=== PATIENT | female | born 1940 | race Caucasian/White ===

== ENCOUNTER 2019-06-23 10:34 | Emergency (ER) | payer OTHER, MEDICARE ==
[2019-06-23] MEDS ORDERED: LIDOCAINE 1% MPF 30 ML VIAL ONE (13:21)
--- NOTE | 2019-06-23 14:54 | ER ---
Nurse's Notes [facility] Name: Toya Thomason Age: 78 yrs Sex: Female : 1940 Arrival Date: 06/23/2019 Time: 10:36 Bed 8 Private MD: Joselito Ponce V Diagnosis: Abscess of Bartholin's gland;Cellulitis of left toe-dorsum of left foot and great toe Presentation: 06/22 11:08 Chief complaint: Patient states: Left sided vaginal cyst x 3 days, started bleeding jl7 this morning and it's very painful. Also, I have swelling on my left big toe that started around Easter time and it's getting worse. Coronavirus screen: Proceed with normal triage. Patient denies a cough. Patient denies shortness of breath or difficulty breathing. Patient denies measured and/or subjective temperature greater than 100.4F prior to today's visit. Patient denies travel on a cruise ship or to a country the [facility] currently lists as an affected area. Patient denies contact with known and/or suspected case of COVID-19. Ebola Screen: No symptoms or risks identified at this time. Initial Sepsis Screen: Does the patient meet any 2 criteria? No. Patient's initial sepsis screen is negative. Does the patient have a suspected source of infection? No. Patient's initial sepsis screen is negative. Risk Assessment: Do you want to hurt yourself or someone else? Patient reports no desire to harm self or others. Onset of symptoms was June 20, 2019. Care prior to arrival: None. 11:08 Method Of Arrival: Ambulatory jl7 11:08 Acuity: LUIS 3 jl7 Triage Assessment: 11:13 General: Appears in no apparent distress. uncomfortable, Behavior is calm, cooperative, jl7 appropriate for age. Pain: Complains of pain in left aspect of groin and left 1st toe Pain currently is 8 out of 10 on a pain scale. Neuro: Level of Consciousness is awake, alert, obeys commands, Oriented to person, place, time, situation. Cardiovascular: Patient's skin is warm and dry. Respiratory: Airway is patent Respiratory effort is even, unlabored, Respiratory pattern is regular, symmetrical. Derm: Skin is pink, warm \T\ dry. Historical: - Allergies: 11:13 Sulfa (Sulfonamide Antibiotics); jl7 - Home Meds: 11:13 lisinopril 5 mg Oral tab 1 tab once daily [Active]; Lipitor 80 mg Oral tab 1 tab once jl7 daily [Active]; Toprol XL 50 mg Oral Tb24 1 tab once daily [Active]; torsemide 20 mg Oral tab 1 tab once daily [Active]; Novolin 70/30 Innolet Sub-Q [Active]; aspirin 81 mg Oral TbEC 1 tab once daily [Active]; - PMHx: 11:13 Diabetes - IDDM; Hyperlipidemia; Hypertension; jl7 - PSHx: 11:13 Hysterectomy; CABG; cataract; left knee; jl7 - Immunization history:: Adult Immunizations up to date. - Social history:: Smoking status: Patient denies any tobacco usage or history of. Screenin:42 Abuse screen: Denies threats or abuse. Denies injuries from another. Nutritional hb screening: No deficits noted. Tuberculosis screening: No symptoms or risk factors identified. Fall Risk None identified. Assessment: 14:00 General: Appears in no apparent distress. Behavior is calm, cooperative. Pain: Pain hb currently is 8 out of 10 on a pain scale. Neuro: Level of Consciousness is awake, alert, obeys commands, Oriented to person, place, time, situation. Cardiovascular: Capillary refill < 3 seconds Patient's skin is warm and dry. Respiratory: Airway is patent Respiratory effort is even, unlabored, Respiratory pattern is regular, symmetrical. GI: No signs and/or symptoms were reported involving the gastrointestinal system. : Reports labial pain. EENT: No signs and/or symptoms were reported regarding the EENT system. Derm: Skin is pink, warm \T\ dry. Musculoskeletal: No signs and/or symptoms reported regarding the musculoskeletal system. 15:00 Reassessment: Patient appears in no apparent distress at this time. Patient and/or hb family updated on plan of care and expected duration. Pain level reassessed. Patient is alert, oriented x 3, equal unlabored respirations, skin warm/dry/pink. 16:00 Reassessment: Patient appears in no apparent distress at this time. Patient and/or hb family updated on plan of care and expected duration. Pain level reassessed. Patient is alert, oriented x 3, equal unlabored respirations, skin warm/dry/pink. Vital Signs: 11:08 BP 153 / 60; Pulse 70; Resp 17; Temp 97.7; Pulse Ox 96% ; Weight 90.72 kg; Pain 8/10; jl7 14:00 BP 148 / ???; Pulse 64; Resp 66; Temp 15; Pulse Ox 96% on R/A; hb 15:30 BP 137 / 64; Pulse 67; Resp 16; Temp 97.4; Pulse Ox 98% on R/A; ph ED Course: 10:36 Patient arrived in ED. ds1 10:36 Joselito Ponce MD is Private Physician. ds1 11:12 Triage completed. jl7 11:13 Arm band placed on right wrist. jl7 12:53 Daniel Bob MD is Attending Physician. kdr 13:32 Zara Salmeron, RN is Primary Nurse. ph 14:42 Patient has correct armband on for positive identification. Bed in low position. Call hb light in reach. Side rails up X 1. 14:45 Joselito Ponce MD is Referral Physician. kdr 14:56 Doretha Rojas MD is Referral Physician. kdr 15:46 Referral Physician role handed off by Doretha Rojas MD kdr 15:46 Moisés Sanders MD is Referral Physician. kdr 16:03 No provider procedures requiring assistance completed. Patient did not have IV access hb during this emergency room visit. Administered Medications: No medications were administered Outcome: 14:54 Discharge ordered by . kdr 16:06 Discharged to home via wheelchair. hb 16:06 Condition: stable 16:06 Discharge instructions given to patient, Instructed on discharge instructions, follow up and referral plans. medication usage, wound care, Demonstrated understanding of instructions, follow-up care, medications, Prescriptions given X 2. 16:06 Patient left the ED. hb Signatures: Daniel Bob MD MD kdr Mildred Norris ds1 Zara Salmeron, RN RN ph Michelle Verdugo RN RN Landry Harris RN RN jl7
--- NOTE | 2019-06-23 14:55 | EDPHYS ---
Physician Documentation [facility] Name: Toya Thomason Age: 78 yrs Sex: Female : 1940 Arrival Date: 06/23/2019 Time: 10:36 Bed 8 Private MD: Joselito Ponce V ED Physician Daniel Bob HPI: 06/22 14:57 This 78 yrs old Female presents to ER via Ambulatory with complaints of kdr Vaginal Pain - cyst, Toe Swelling. 14:57 The patient presents with Left labial swelling. Onset: The symptoms/episode kdr began/occurred gradually, 3 day(s) ago. Modifying factors: The symptoms are alleviated by nothing, the symptoms are aggravated by movement, pressure. Associated signs and symptoms: Pertinent positives: Pertinent negatives: constipation, cramping, diarrhea, dysuria, fever, hematuria, vaginal bleeding, vaginal discharge. Severity of symptoms: At their worst the symptoms were mild, in the emergency department the symptoms are unchanged. The patient is not sexually active. The patient has not experienced similar symptoms in the past. The patient has not recently seen a physician. The patient also c/o cellulitis to the dorsum the right foot and great toe. It has been there for a month. It has been persistent but may be getting somewhat better. Historical: - Allergies: 11:13 Sulfa (Sulfonamide Antibiotics); jl7 - Home Meds: 11:13 lisinopril 5 mg Oral tab 1 tab once daily [Active]; Lipitor 80 mg Oral tab 1 tab once jl7 daily [Active]; Toprol XL 50 mg Oral Tb24 1 tab once daily [Active]; torsemide 20 mg Oral tab 1 tab once daily [Active]; Novolin 70/30 Innolet Sub-Q [Active]; aspirin 81 mg Oral TbEC 1 tab once daily [Active]; - PMHx: 11:13 Diabetes - IDDM; Hyperlipidemia; Hypertension; jl7 - PSHx: 11:13 Hysterectomy; CABG; cataract; left knee; jl7 - Immunization history:: Adult Immunizations up to date. - Social history:: Smoking status: Patient denies any tobacco usage or history of. ROS: 14:57 Constitutional: Negative for fever, chills, and weight loss, Eyes: Negative for injury, kdr pain, redness, and discharge, ENT: Negative for injury, pain, and discharge, Neck: Negative for injury, pain, and swelling, Cardiovascular: Negative for chest pain, palpitations, and edema, Respiratory: Negative for shortness of breath, cough, wheezing, and pleuritic chest pain, Abdomen/GI: Negative for abdominal pain, nausea, vomiting, diarrhea, and constipation, Back: Negative for injury and pain, MS/Extremity: Negative for injury and deformity, Neuro: Negative for headache, weakness, numbness, tingling, and seizure activity. Psych: Negative for depression, anxiety, suicide ideation, homicidal ideation, and hallucinations, Allergy/Immunology: Negative for hives, rash, and allergies, Hematologic/Lymphatic: Negative for swollen nodes, abnormal bleeding, and unusual bruising. 14:57 : Positive for pelvic pain, Left posterior labial swelling and pain. Exam: 14:57 : Pelvic Exam: External exam: Bartholin's cyst present, erythema is noted. kdr 15:10 Constitutional: This is a well developed, well nourished patient who is awake, alert, kdr and in no acute distress. Vital Signs: 11:08 BP 153 / 60; Pulse 70; Resp 17; Temp 97.7; Pulse Ox 96% ; Weight 90.72 kg; Pain 8/10; jl7 14:00 BP 148 / ???; Pulse 64; Resp 66; Temp 15; Pulse Ox 96% on R/A; hb 15:30 BP 137 / 64; Pulse 67; Resp 16; Temp 97.4; Pulse Ox 98% on R/A; ph Procedures: 15:09 I \T\ D: Incision and drainage was performed for an abscess of the left Bartholin's kdr gland. Prepped with Betadine, Anesthetized with 5 ml's 1% Lidocaine. Incised with #11 blade. Drained small amount purulent fluid. bloody fluid. Packed with Word catheter. Dressing: sterile 4x4 gauze, the patient tolerated the procedure well. MDM: 14:54 Patient medically screened. kdr 14:57 Data reviewed: vital signs, nurses notes. Counseling: I had a detailed discussion with kdr the patient and/or guardian regarding: the historical points, exam findings, and any diagnostic results supporting the discharge/admit diagnosis, the need for outpatient follow up. Administered Medications: No medications were administered Disposition: 06/23/19 14:54 Discharged to Home. Impression: Abscess of Bartholin's gland, Cellulitis of left toe - dorsum of left foot and great toe. - Condition is Stable. - Discharge Instructions: Bartholin Cyst or Abscess, Cellulitis, Adult, [id number]. - Prescriptions for Cipro 500 mg Oral Tablet - take 1 tablet by ORAL route every 12 hours for 7 days; 14 tablet. Tramadol 50 mg Oral Tablet - take 1 tablet by ORAL route every 8 hours as needed; 12 tablet. - Medication Reconciliation Form, Thank You Letter, Antibiotic Education form. - Follow up: Joselito Ponce MD; When: 2 - 3 days; Reason: If symptoms return, Further diagnostic work-up, Recheck today's complaints, Continuance of care, Re-evaluation by your physician. Follow up: Doretha Rojas MD; When: 2 - 3 days; Reason: If symptoms return, Further diagnostic work-up, Recheck today's complaints, Continuance of care, Re-evaluation by your physician. Follow up: Moisés Sanders MD; When: 2 - 3 days; Reason: If symptoms return, Further diagnostic work-up, Recheck today's complaints, Continuance of care, Re-evaluation by your physician. - Problem is new. - Symptoms have improved. Signatures: Daniel Bob MD MD kdr Michelle Verdugo RN RN Landry Harris RN RN jl7 Corrections: (The following items were deleted from the chart) 14:56 14:54 06/23/2019 14:54 Discharged to Home. Impression: Abscess of Bartholin's gland; kdr Cellulitis of left toe - dorsum of left foot and great toe. Condition is Stable. Forms are Medication Reconciliation Form, Thank You Letter, Antibiotic Education, Prescription Opioid Use. Follow up: Joselito Ponce; When: 2 - 3 days; Reason: If symptoms return, Further diagnostic work-up, Recheck today's complaints, Continuance of care, Re-evaluation by your physician. Problem is new. Symptoms have improved. kdr 15:46 14:56 06/23/2019 14:54 Discharged to Home. Impression: Abscess of Bartholin's gland; kdr Cellulitis of left toe - dorsum of left foot and great toe. Condition is Stable. Discharge Instructions: Bartholin Cyst or Abscess, Cellulitis, Adult, [id number]. Prescriptions for Cipro 500 mg Oral Tablet - take 1 tablet by ORAL route every 12 hours for 7 days; 14 tablet, Tramadol 50 mg Oral Tablet - take 1 tablet by ORAL route every 8 hours as needed; 12 tablet. and Forms are Medication Reconciliation Form, Thank You Letter, Antibiotic Education. Follow up: Joselito Ponce; When: 2 - 3 days; Reason: If symptoms return, Further diagnostic work-up, Recheck today's complaints, Continuance of care, Re-evaluation by your physician. Follow up: Doretha Rojas; When: 2 - 3 days; Reason: If symptoms return, Further diagnostic work-up, Recheck today's complaints, Continuance of care, Re-evaluation by your physician. Problem is new. Symptoms have improved. kdr 16:06 15:46 06/23/2019 14:54 Discharged to Home. Impression: Abscess of Bartholin's gland; hb Cellulitis of left toe - dorsum of left foot and great toe. Condition is Stable. Discharge Instructions: Bartholin Cyst or Abscess, Cellulitis, Adult, [id number]. Prescriptions for Cipro 500 mg Oral Tablet - take 1 tablet by ORAL route every 12 hours for 7 days; 14 tablet, Tramadol 50 mg Oral Tablet - take 1 tablet by ORAL route every 8 hours as needed; 12 tablet. and Forms are Medication Reconciliation Form, Thank You Letter, Antibiotic Education. Follow up: Joselito Ponce; When: 2 - 3 days; Reason: If symptoms return, Further diagnostic work-up, Recheck today's complaints, Continuance of care, Re-evaluation by your physician. Follow up: Moisés Sanders; When: 2 - 3 days; Reason: If symptoms return, Further diagnostic work-up, Recheck today's complaints, Continuance of care, Re-evaluation by your physician. Problem is new. Symptoms have improved. kdr
[2019-06-24 14:46] VITALS: BP 153/60; O2SAT 96
[2019-06-24 14:47] VITALS: TEMP 15
== END 2019-06-23 16:06 | disposition home or self-care (01) ==
LOC: ER 10:34
PROC: 0U9L0ZZ Drainage of Vestibular Gland, Open Approach (ICD-10-PCS; principal; 2019-06-23)
DX: N75.1 Abscess of Bartholin's gland (principal); L03.032 Cellulitis of left toe; I10 Essential (primary) hypertension; E11.9 Type 2 diabetes mellitus without complications; E78.5 Hyperlipidemia, unspecified; Z79.4 Long term (current) use of insulin; Z79.82 Long term (current) use of aspirin; Z88.2 Allergy status to sulfonamides; Z95.1 Presence of aortocoronary bypass graft
CPT/HCPCS: 99282

== ENCOUNTER 2021-02-28 15:52 | Inpatient (IN) | payer OTHER, MEDICARE ==
--- OUTSIDE RECORDS SUMMARY | 2021-02-28 15:55 | XMS REPORT | Continuity of Care Document ---
:1940 Author Organization [facility] t Address [address] [place] [address] [place] [id number] Care Team Providers Name Role Phone JOSE ENRIQUE Attending Clinician Unavailable Problems This patient has no known problems. Allergies, Adverse Reactions, Alerts This patient has no known allergies or adverse reactions. Medications This patient has no known medications. Procedures This patient has no known procedures. Encounters Start End Encounter Admission Attending Care Care Encounter Source Date/Time Date/Time Type Type Clinicians Facility Department ID 2020-08-13 2020-08-13 Emergency JOSE ENRIQUE [facility] [id number] [address] [place] 00:00:00 00:00:00 [facility] [address] Results This patient has no known results.
[2021-02-28 17:40] LABS: Absolute Lymphocytes (CBC) 1.6 K/uL (0.7-4.9); Hematocrit 42.6 % (36.0-45.0); Lymphocytes % 17.5 % (15.3-44.8); MPV 7.4 fL (7.6-11.3); RBC Red Blood Cell Count 4.57 M/uL (3.86-4.86)
[2021-02-28 17:45] LABS: Protime INR 1.08
[2021-02-28 18:00] LABS: Albumin 2.9 g/dL (3.4-5.0); Bilirubin Direct 0.2 mg/dL (0-0.2); Bilirubin Total 0.7 mg/dL (0.2-1.0); Magnesium 1.9 mg/dL (1.8-2.4); Potassium 3.9 mmol/L (3.5-5.1); Protein, Total 7.5 g/dL (6.4-8.2)
[2021-02-28 18:05] LABS: Troponin High Sensitivity 224.2 pg/mL (<58.9)
--- NOTE | 2021-02-28 18:52 | RAD REPORT ---
EXAM DESCRIPTION: CT - Chest For Pe Angio - 02/28/2021 6:36 pm CLINICAL HISTORY: SOB COMPARISON: Chest Pa And Lat (2 Views) dated 02/28/2021 FINDINGS: Chest Wall: No suspicious thyroid nodules or pathologic lymphadenopathy. Lungs: Evaluation limited due to motion. Atelectasis as a result of the effusions. Pleura: Small bilateral effusions. Mediastinum/russell: No pathologic lymphadenopathy. Pulmonary arteries/Aorta: No filling defect identified. No aortic aneurysm. Heart: No significant pericardial effusion. Normal heart size. Multi-vessel coronary artery disease. Upper abdomen: No acute abnormality. Bones: No acute abnormality. Sternotomy. Multilevel degenerative changes are present in the spine. All CT scans are performed using dose optimization technique as appropriate and may include automated exposure control or mA/KV adjustment according to patient size. IMPRESSION: Negative for pulmonary embolism. Interstitial pulmonary edema with small pleural effusio ns.
--- NOTE | 2021-02-28 19:36 | EDPHYS ---
Physician Documentation [facility] Name: Toya Thomason Age: 80 yrs Sex: Female : 1940 Arrival Date: 02/28/2021 Time: 15:53 Bed 2 Private MD: Joselito Ponce V ED Physician Richard Everett HPI: 02/28 18:58 This 80 yrs old Female presents to ER via Ambulatory with complaints of Shortness Of kb Breath. 18:58 The patient has shortness of breath at rest, with light activity. Onset: The kb symptoms/episode began/occurred started months ago, but worse over the last few weeks. Duration: The symptoms are continuous. The patient's shortness of breath is aggravated by exertion, is alleviated by nothing. Associated signs and symptoms: The patient has no apparent associated signs or symptoms. Severity of symptoms: At their worst the symptoms were moderate in the emergency department the symptoms are unchanged. The patient has not experienced similar symptoms in the past. The patient has not recently seen a physician. Pt reports shortness of breath for months, worse over the last few weeks. States she was seen by Dr Ponce and had labs/CXR done today. Dr Ponce called her and told her to come to the ER for further workup due to fluid on lungs. Dr Ponce spoke with Dr Everett prior to pt's arrival and requested a CT PE protocol and admission. Historical: - Allergies: 16:54 Sulfa (Sulfonamide Antibiotics); jl7 - Home Meds: 16:54 Novolin 70/30 InnoLet Insulin 100 unit/mL (70-30) Sub-Q inpn 180 unit [Active]; jl7 simvastatin 80 mg Oral tab [Active]; - PMHx: 16:54 Diabetes - IDDM; Hyperlipidemia; Hypertension; jl7 - Immunization history:: Client reports receiving the 2nd dose of the Covid vaccine, Moderna. - Social history:: Smoking status: Patient denies any tobacco usage or history of. ROS: 18:58 Constitutional: Negative for fever, chills, and weight loss. kb 18:58 Respiratory: Positive for dyspnea on exertion, shortness of breath, Negative for cough, hemoptysis, orthopnea, pleurisy, sputum production, wheezing. 18:58 All other systems are negative. Exam: 18:58 Constitutional: This is a well developed, well nourished patient who is awake, alert, kb and in no acute distress. Head/Face: Normocephalic, atraumatic. ENT: Moist Mucous membranes Cardiovascular: Regular rate and rhythm with a normal S1 and S2. No gallops, murmurs, or rubs. No pulse deficits. Respiratory: Respirations even and unlabored. No increased work of breathing. Talking in full sentences Abdomen/GI: Soft, non-tender. No distention Skin: Warm, dry with normal turgor. Normal color. MS/ Extremity: Pulses equal, no cyanosis. Neurovascular intact. Full, normal range of motion. Neuro: Awake and alert, GCS 15, oriented to person, place, time, and situation. Moves all extremities. Normal gait. Psych: Awake, alert, with orientation to person, place and time. Behavior, mood, and affect are within normal limits. Vital Signs: 16:51 BP 141 / 79; Pulse 111; Resp 23; Temp 97.6(O); Pulse Ox 93% on R/A; Weight 90.72 kg; jl7 Height 5 ft. 4 in. (162.56 cm); Pain 0/10; 18:00 BP 119 / 73; Pulse 99; Resp 17; Pulse Ox 95% ; bp 22:00 BP 117 / 65; Pulse 103; Resp 18; Pulse Ox 95% on R/A; sm5 16:51 Body Mass Index 34.33 (90.72 kg, 162.56 cm) jl7 MDM: 17:15 Patient medically screened. 18:58 Data reviewed: vital signs, nurses notes. Data interpreted: Pulse oximetry: on room air kb is 95 %. Interpretation: normal. Counseling: I had a detailed discussion with the patient and/or guardian regarding: the historical points, exam findings, and any diagnostic results supporting the discharge/admit diagnosis, lab results, radiology results, the need for further work-up and treatment in the hospital. 19:33 Physician consultation: Joselito Ponce MD was contacted at 19:33, regarding admission, to the telemetry unit. patient's condition, and will see patient in inpatient room. 19:36 Physician consultation: Yo Nguyen MD was called at 19:36, regarding consult. 02/28 17:15 Order name: Basic Metabolic Panel; Complete Time: 18:06 02/28 17:15 Order name: CBC with Diff; Complete Time: 17:52 kb 02/28 17:15 Order name: LFT's; Complete Time: 18:06 kb 02/28 17:15 Order name: Magnesium; Complete Time: 18:06 kb 02/28 17:15 Order name: NT PRO-BNP; Complete Time: 18:06 kb 02/28 17:15 Order name: PT-INR; Complete Time: 17:52 kb 02/28 17:15 Order name: Troponin HS; Complete Time: 18:06 kb 02/28 17:20 Order name: CT Chest For PE Angio; Complete Time: 18:57 kb 02/28 17:29 Order name: COVID-19 SARS RT PCR (Document "Date of Onset" if Symptomatic) kb 02/28 17:30 Order name: SARS-COV-2 RT PCR; Complete Time: 19:27 EDMS 02/28 19:33 Order name: US Extremity Venous W Compression Rhett kb 02/28 19:33 Order name: US Abdomen Complete kb 02/28 21:19 Order name: Glucose, Ancillary Testing EDMS 02/28 17:15 Order name: EKG; Complete Time: 17:16 kb 02/28 17:15 Order name: Cardiac monitoring; Complete Time: 17:17 kb 02/28 17:15 Order name: EKG - Nurse/Tech; Complete Time: 17:55 kb 02/28 17:15 Order name: IV Saline Lock; Complete Time: 17:25 kb 02/28 17:15 Order name: Labs collected and sent; Complete Time: 17:25 kb 02/28 17:15 Order name: O2 Per Protocol; Complete Time: 17:17 kb 02/28 17:15 Order name: O2 Sat Monitoring; Complete Time: 17:17 kb 02/28 21:17 Order name: US EDMS 02/28 21:20 Order name: EDMS Administered Medications: 20:04 Drug: Spironolactone 50 mg Route: PO; sm5 Disposition Summary: 02/28/21 19:36 Hospitalization Ordered Hospitalization Status: Observation kb Provider: Joselito Ponce Location: Telemetry/MedSurg (observation) kb Condition: Stable kb Problem: new kb Symptoms: are unchanged kb Bed/Room Type: Standard Room Assignment: 231(02/28/21 21:37) eb1 Diagnosis - Dyspnea kb - Elevated Troponin kb Forms: - Medication Reconciliation Form kb - SBAR form kb Signatures: Dispatcher [employer] EDMS Hazel Jones, MEMS PROCESS ENGINEER-C MEMS PROCESS ENGINEER-Landry Epstein RN RN jl7 Aby Martines RN RN eb1 Antonella Noble RN RN sm5 Corrections: (The following items were deleted from the chart) 17:26 17:16 Chest Single View+RAD.RAD.BRZ ordered. EDMS EDMS 21:37 19:36 kb eb1 23:01 23:01 PSHx: Total abdominal hysterectomy; sm5 sm5 23:01 23:01 PSHx: bypass; sm5 sm5
--- NOTE | 2021-02-28 19:36 | ER ---
Nurse's Notes [facility] Name: Toya Thomason Age: 80 yrs Sex: Female : 1940 Arrival Date: 02/28/2021 Time: 15:53 Bed 2 Private MD: Joselito Ponce V Diagnosis: Dyspnea;Elevated Troponin Presentation: 02/28 16:50 Chief complaint: Patient states: "Dr. Ponce called and told me to come because of my jl7 blood work. Said something about fluid on my lungs.". 16:51 Chief complaint: Patient states: Shortness of breath for months but worsened over the jl7 past week. Coronavirus screen: Vaccine status: Patient reports receiving the 2nd dose of the covid vaccine. Moderna shortness of breath, Client presents with at least one sign or symptom that may indicate coronavirus-19. Standard/surgical mask placed on the client. Ebola Screen: No symptoms or risks identified at this time. Initial Sepsis Screen: Does the patient meet any 2 criteria? RR > 20 per min. HR > 90 bpm. Does the patient have a suspected source of infection? No. Patient's initial sepsis screen is negative. Risk Assessment: Do you want to hurt yourself or someone else? Patient reports no desire to harm self or others. Onset of symptoms is unknown. 16:51 Method Of Arrival: Ambulatory [facility] 16:51 Acuity: LUIS 3 jl7 Triage Assessment: 16:50 General: Appears in no apparent distress. uncomfortable, Behavior is calm, cooperative, jl7 appropriate for age. Pain: Denies pain. Respiratory: Reports shortness of breath at rest on exertion Airway is patent Respiratory effort is even, unlabored, Respiratory pattern is symmetrical, tachypnea Onset: The symptoms/episode began/occurred at an unknown time. the patient has mild shortness of breath. Historical: - Allergies: 16:54 Sulfa (Sulfonamide Antibiotics); jl7 - Home Meds: 16:54 Novolin 70/30 InnoLet Insulin 100 unit/mL (70-30) Sub-Q inpn 180 unit [Active]; jl7 simvastatin 80 mg Oral tab [Active]; - PMHx: 16:54 Diabetes - IDDM; Hyperlipidemia; Hypertension; jl7 - Immunization history:: Client reports receiving the 2nd dose of the Covid vaccine, Moderna. - Social history:: Smoking status: Patient denies any tobacco usage or history of. Screenin:00 Abuse screen: Denies threats or abuse. Denies injuries from another. Nutritional bp screening: No deficits noted. Tuberculosis screening: No symptoms or risk factors identified. Fall Risk None identified. Assessment: 17:00 General: SEE TRIAGE NOTE. bp 17:00 Cardiovascular: Rhythm is sinus tachycardia. Respiratory: Airway is patent Breath bp sounds are coarse bilaterally. 18:31 Reassessment: PT TO CT. bp Vital Signs: 16:51 BP 141 / 79; Pulse 111; Resp 23; Temp 97.6(O); Pulse Ox 93% on R/A; Weight 90.72 kg; jl7 Height 5 ft. 4 in. (162.56 cm); Pain 0/10; 18:00 BP 119 / 73; Pulse 99; Resp 17; Pulse Ox 95% ; bp 22:00 BP 117 / 65; Pulse 103; Resp 18; Pulse Ox 95% on R/A; sm5 16:51 Body Mass Index 34.33 (90.72 kg, 162.56 cm) jl7 ED Course: 15:53 Patient arrived in ED. as 15:53 Joselito Ponce MD is Private Physician. as 16:50 Arm band placed on right wrist. jl7 16:54 Triage completed. jl7 17:00 Patient has correct armband on for positive identification. Bed in low position. Call bp light in reach. Side rails up X2. 17:13 Patient placed in an exam room, on a stretcher. ll1 17:15 Hazel [facility]C [facility] kb 17:15 Richard Everett MD is Attending Physician. kb 17:15 Inserted saline lock: 22 gauge in left antecubital area, using aseptic technique. Blood bp collected. 17:18 Maulik Price, QUINCY is Primary Nurse. bp 18:36 CT Chest For PE Angio In Process Unspecified. EDMS 19:35 Joselito Ponce MD is Hospitalizing Provider. kb 20:15 COVID-19 SARS RT PCR (Document "Date of Onset" if Symptomatic) Sent. st1 23:01 No provider procedures requiring assistance completed. Patient admitted, IV remains in sm5 place. Administered Medications: 20:04 Drug: Spironolactone 50 mg Route: PO; 5 Outcome: 19:36 Decision to Hospitalize by Provider. kb 23:01 Admitted to Med/surg accompanied by tech, via stretcher, with chart. 5 23:01 Condition: stable 23:01 Instructed on the need for admit. 23:03 Patient left the ED. [facility] Signatures: Dispatcher [employer] EDMS Hazel Jones, SHELLY BRUNER-Maria L Kramer Jahala, RN RN jl7 Maulik Price RN RN bp Gurpreet Lynn RN RN ll1 Antonella Noble RN RN [facility] Meena Scanlon, RN RN st1 Corrections: (The following items were deleted from the chart) 18:33 18:00 Inserted saline lock: 22 gauge in left antecubital area, using aseptic technique. bp Blood collected. bp 18:35 18:33 BP 119 / 73; Pulse 99bpm; Resp 17bpm; Pulse Ox 95%; bp bp 23:01 23:01 PSHx: Total abdominal hysterectomy; [place] [id number] 23:01 23:01 PSHx: bypass; [place] [id number]
[2021-02-28] MEDS ORDERED: SPIRONOLACTONE 25 MG TABLET ONE (20:02)
--- NOTE | 2021-02-28 21:17 | RAD REPORT ---
EXAM DESCRIPTION: US - Extrem Venous W Compress Rhett - 02/28/2021 9:02 pm CLINICAL HISTORY: Swelling COMPARISON: None. TECHNIQUE: Real-time sonographic evaluation of the bilateral lower extremity deep venous systems was performed. FINDINGS: Normal compressibility, flow augmentation, phasic flow and spontaneous flow is identified in both the left and right lower extremity deep venous systems. No intraluminal filling defects seen. IMPRESSION: No DVT in either lower extremity.
--- NOTE | 2021-02-28 21:19 | RAD REPORT ---
EXAM DESCRIPTION: US - Abdomen Exam Complete - 02/28/2021 9:03 pm CLINICAL HISTORY: Abdominal pain COMPARISON: Chest For Pe Angio dated 02/28/2021 FINDINGS: No aortic aneurysm. Calcified plaque in the abdominal aorta. Hepatic steatosis. The portal vein is patent. The IVC at the level of the liver is unremarkable. No ascites. Cholelithiasis is present. No gallbladder wall thickening. No biliary ductal dilatation. Negative son ographic Joseph's sign. The pancreas was grossly unremarkable. The right kidney measures 9.6 cm normal echotexture. No hydronephrosis. No suspicious masses. The left kidney measures 9.5 cm with a normal echotexture. No hydronephrosis. No suspicious masses. The spleen is unremarkable. IMPRESSION: Cholelithiasis without sonographic evidence of acute cholecystitis. Hepatic steatosis.
[2021-02-28 23:24] VITALS: BMI 38.1
[2021-03-01 06:41] LABS: Absolute Lymphocytes (CBC) 1.7 K/uL (0.7-4.9); Hematocrit 40.8 % (36.0-45.0); Lymphocytes % 18.6 % (15.3-44.8); MPV 7.7 fL (7.6-11.3); RBC Red Blood Cell Count 4.42 M/uL (3.86-4.86)
[2021-03-01 07:07] LABS: Potassium 4.6 mmol/L (3.5-5.1)
[2021-03-01] MEDS: SPIRONOLACTONE 100 MG TAB PO SCH (08:36)
[2021-03-01] MEDS ORDERED: D50W 25 GM/50 ML SYRINGE IV PRN ×2 (12:32→16:19)
[2021-03-01] MEDS ORDERED: GLUCAGON 1 MG/VIAL IM PRN ×2 (12:32→16:19)
--- NOTE | 2021-03-01 12:44 | P.HP ---
Certification for Inpatient Patient admitted to: Inpatient With expected LOS: >2 Midnights Practitioner: I am a practitioner with admitting privileges, knowledge of patient current condition, hospital course, and medical plan of care. Services: Services provided to patient in accordance with Admission requirements found in Title 42 Section 412.3 of the Code of Federal Regulations Patient History Date of Service: 03/01/21 Reason for admission: SHORT OF BREATH History of Present Illness: ELIO IS 80 YEARS OLD LADY WITH DM. CAD AND CHF WITH DIASTOLIC DYSFUNCTION. SHE WAS ON TORSEMIDE UNTIL ABOUT A WEEK AGO WHEN I HAD TO STOP IT SHE DEVELOPED SEVERE RASH FROM SULFA IN TORSEMIDE. SHE CAN'T TAKE ANY COMMON DIURETICS. ON HER LAB HER D DIMER AND BNP WAS MORE THAN 1000 BUT TROPONIN WAS MORE THAN 200. SHE HAS NO SIGNS OF ND. SHE IS HERE TO SEE SENIOR NUCLEAR MEDICINE TECHNOLOGIST ABOUT FURTHER INTERVENTIONS. Allergies Sulfa (Sulfonamide Antibiotics) Allergy (Verified 02/28/21 23:36) Itching/Hives/Rash Home medications list reviewed: Yes - Past Medical/Surgical History Has patient received pneumonia vaccine in the past: Yes Diabetic: Yes -: Diabetes-IDDM -: hyperlipidemia -: hypertension -: left knee surgery - Social History Smoking Status: Never smoker Alcohol use: No CD- Drugs: No Caffeine use: Yes Place of Residence: Home Review of Systems 10-point ROS is otherwise unremarkable General: Weakness, Malaise Respiratory: Shortness of Breath Physical Examination - Vital Signs Temperature: 97.3 F Blood Pressure: 132/79 Pulse: 105 Respirations: 18 Pulse Ox (%): 97 - Physical Exam General: Oriented x3, Moderate distress, Obese HEENT: Atraumatic, PERRLA, Mucous membr. moist/pink, EOMI, Sclerae nonicteric Neck: Supple, 2+ carotid pulse no bruit, No LAD, JVD distended Respiratory: Clear to auscultation bilaterally, Normal air movement Cardiovascular: Regular rate/rhythm, Normal S1 S2 Gastrointestinal: Normal bowel sounds, No tenderness Musculoskeletal: No tenderness Integumentary: No rashes Neurological: Normal gait, Normal speech, Normal strength at 5/5 x4 extr, Normal tone, Normal affect Lymphatics: No axilla or inguinal lymphadenopathy - Studies Laboratory Data (last 24 hrs) 02/28/21 17:25: PT 12.4, INR 1.08 02/28/21 17:25: WBC 9.10, Hgb 14.0, Hct 42.6, Plt Count 196 02/28/21 17:25: Sodium 141, Potassium 3.9, BUN 19 H, Creatinine 0.93, Glucose 102, Magnesium 1.9, Total Bilirubin 0.7, AST 22, ALT 42, Alkaline Phosphatase 76 Assessment and Plan - Problems (Diagnosis) (1) Acute on chronic diastolic (congestive) heart failure Current Visit: Yes Status: Acute Plan: RAISED SPIRONOLACTONE TO 100 MG DAILY. ADD DIAMOX 250 MG DAILY. ON OUTPATIENT BASIS SHE HAS EDECRIN GIVEN YESTERDAY. ECHO AGAIN. RULE OUT ANY CHANGES. (2) Coronary artery disease due to type 2 diabetes mellitus Current Visit: Yes Status: Chronic Plan: MAY NEED CATH AGAIN. DR. MAYFIELD CALLED. - Advance Directives Does patient have a Living Will: Yes Does patient have a Durable POA for Healthcare: Yes
[2021-03-01] MEDS: INSULIN -REGULAR HUMAN 50 UNIT/0.5 ML ML SQ SCH ×3 (13:27→20:50)
--- NOTE | 2021-03-01 13:28 | ECHO ---
HEIGHT: 5 ft 4 in WEIGHT: 222 lb 4.8 oz DATE OF STUDY: 03/01/[address]: Hazel Jones 2-DIMENSIONAL: YES M.MODE: YES DOPPLER: YES COLOR FLOW: YES TDS: NO PORTABLE: NO DEFINITY: NO BUBBLE STUDY: NO DIAGNOSIS: DYPSNEA, ELEVATED TROPONIN, PULMONARY EDEMA CARDIAC HISTORY: CATHERIZATION: YES SURGERY: YES PROSTHETIC VALVE: NO PACEMAKER: NO MEASUREMENTS (cm) DIASTOLIC (NORMALS) SYSTOLIC (NORMALS) IVSd 1.2 (0.6-1.2) LA Diam 2.8 (1.9-4.0) LVEF 50-55% LVIDd 4.5 (3.5-5.7) LVIDs 3.6 (2.0-3.5) %FS 19% LVPWd 1.2 (0.6-1.2) Ao Diam 2.4 (2.0-3.7) 2 DIMENSIONAL ASSESSMENT: RIGHT ATRIUM: NORMAL LEFT ATRIUM: NORMAL RIGHT VENTRICLE: NORMAL LEFT VENTRICLE: NORMAL TRICUSPID VALVE: NORMAL MITRAL VALVE: PULMONIC VALVE: NORMAL AORTIC VALVE: NORMAL PERICARDIAL EFFUSION: SMALL AORTIC ROOT: NORMAL LEFT VENTRICULAR WALL MOTION: NORMAL DOPPLER/COLOR FLOW: SEE BELOW COMMENTS: LOW NORMAL LEFT VENTRICULAR EJECTION FRACTION 50-55%. MILD MITRAL REGURGITATION. DIASTOLIC DYSFUNCTION. TECHNOLOGIST: Jose RODRIGUEZ
[2021-03-01] MEDS ORDERED: INSULIN 70/30 100 UNITS/ML SQ SCH (16:30)
--- NOTE | 2021-03-01 16:58 | CON ---
Date of Consultation: 03/01/2021 Reason For Consultation: Borderline troponin elevation. History Of Present Illness: An 80-year-old female with history of coronary artery disease, status po st cardiac bypass surgery, CHF. She is allergic to all sulfa products, so she can not take diuretics . The patient has been having shortness of breath, orthopnea, lower extremity edema. No chest pain. Past Medical History: As outlined above in the HPI. Medications: Refer to reconciliation sheet for detailed list. Allergies: SULFA MEDICATIONS. Social History: She does not smoke or drink. Does not use any drugs. Review of Systems: All systems reviewed and they were negative except for what mentioned in HPI. Physical Examination: Vital Signs: Reviewed. Head and Neck: Pupils are equal, reactive to light. Intact eye movements. Small JVD elevation. Lungs: Clear to auscultation bilaterally. No rhonchi, rales, or crackles. No accessory muscle use. Heart: Regular rate and rhythm. No extra sounds. Abdomen: Soft, nontender. Bowel sounds positive. No organomegaly. No masses or hernia. No rigidi ty or rebound. Extremities: No clubbing or cyanosis. Intact pulses. Skin: No rash noted. Neurologic: Alert, awake, oriented x3. No acute focal deficits appreciated. Lymph Nodes: No cervical or axillary lymphadenopathy. Investigations: Echo; EF is 50% to 55%. White blood cell count is 9.10, hemoglobin 13.3, BUN 17, cr eatinine 0.8. Troponin is 224. NT-proBNP is 1853. Assessment And Plan: 1.Acute congestive heart failure. The patient will need diuretic to be placed. She was started on acetazolamide, recommended to do that intravenously 250 mg IV q.12 hours and continue Aldactone and m onitor for the next 24 hours' response, especially the CROSSING GUARD level. 2.Elevated troponin. There is no chest pain. Please trend troponin further. Her EF is still violeta l. If troponin remains at this level, it is likely due to demand ischemia, then I will recommend out patient nuclear stress test. If the troponin rises further then we might elect to do coronary angiog jamel while she is in the hospital. I will discuss further with Dr. Ponce. Thank you for the consult. /BRADY Voice ID: [id number] Report ID: [id number]
[2021-03-01] MEDS ORDERED: ENOXAPARIN 40 MG/0.4 ML SQ SCH (17:00)
[2021-03-01] MEDS ORDERED: ENOXAPARIN 30 MG/0.3 ML SQ SCH (17:00)
[2021-03-02] MEDS ORDERED: INSULIN 70/30 100 UNITS/ML SQ SCH (07:30)
[2021-03-02] MEDS ORDERED: acetaZOLAMIDE 250 MG TAB PO SCH (09:00)
[2021-03-02 09:24] VITALS: O2SAT 97
[2021-03-02] MEDS: INSULIN -REGULAR HUMAN 50 UNIT/0.5 ML ML SQ SCH ×2 (09:43→12:33)
[2021-03-02] MEDS: SPIRONOLACTONE 100 MG TAB PO SCH (09:44)
[2021-03-02] MEDS ORDERED: IPRATROPIUM BROM 0.5MG/2.5ML NEB ONE (10:13)
[2021-03-02] MEDS ORDERED: ALBUTEROL 2.5 MG/3 ML NEB SOL NEB ONE (10:13)
[2021-03-02 10:21] LABS: Absolute Lymphocytes (CBC) 1.1 K/uL (0.7-4.9); Hematocrit 41.8 % (36.0-45.0); Lymphocytes % 15.9 % (15.3-44.8); MPV 7.7 fL (7.6-11.3); RBC Red Blood Cell Count 4.48 M/uL (3.86-4.86)
[2021-03-02 11:31] LABS: Potassium 4.3 mmol/L (3.5-5.1)
[2021-03-02] MEDS ORDERED: acetaZOLAMIDE 250 MG TAB PO ONE (12:41)
[2021-03-02 12:56] VITALS: BP 129/65; TEMP 97.9
--- NOTE | 2021-03-02 16:51 | P.DS ---
Admission Date: 03/01/21 Discharge Date: 03/02/21 Disposition: ROUTINE DISCHARGE Discharge Condition: FAIR Reason for Admission: SHORT OF BREATH - Problems (1) Acute on chronic diastolic (congestive) heart failure Status: Acute (2) Coronary artery disease due to type 2 diabetes mellitus Status: Chronic Brief History of Present Illness: ELIO IS 80 YEARS OLD LADY WITH DM. CAD AND CHF WITH DIASTOLIC DYSFUNCTION. SHE WAS ON TORSEMIDE UNTIL ABOUT A WEEK AGO WHEN I HAD TO STOP IT SHE DEVELOPED SEVERE RASH FROM SULFA IN TORSEMIDE. SHE CAN'T TAKE ANY COMMON DIURETICS. ON HER LAB HER D DIMER AND BNP WAS MORE THAN 1000 BUT TROPONIN WAS MORE THAN 200. SHE HAS NO SIGNS OF OR. SHE IS HERE TO SEE PLASTIC HOSPITAL PRODUCTS ASSEMBLER ABOUT FURTHER INTERVENTIONS. Hospital Course: ELIO HAS DEVELOPED MILD ACUTE ON CHRONIC DIASTOLIC DYSFUNCTION. UNTIL TWO WEEKS AGO SHE WAS ON TORSEMIDE THAT HAS DISTANT SULFA MOLECULE. SHE DEVELOPED SEVERE RASH ON IT AFTER BEING ON IT FOR LONG DURATION. I TALKED TO DAUGHTER IN DETAIL ABOUT IT SHE HAD QUESTIONS WHY SHE WAS ON IT. I EXPLAINED TO HER THAT MANY DRUGS HAVE SULFA MOLECULE BUT THAT DOES NOT MEAN THEY WILL HAVE RASH OR REACTION AND SO AT THE SAME TIME THEY MAY HAVE RASH AFTER BEING ON IT FOR MANY YEARS. MOST DIURETICS HAVE SULFA IN IT. SPIRONOLACOTNE, EDECRIN , AMILORIDE ARE THE ONE THAT DO NOT HAVE SULFA. I STARTED HER ON SPIRONOLACTONE AND RAISED IT. IT IS STILL NOT ENOUGH. PLASTIC HOSPITAL PRODUCTS ASSEMBLER THOUGHT WE SHOULD TRY ACETAZOLAMIDE BUT LATER I CHECKED AND IT ALSO HAS SULFA. I HAVE CALLED IN EDECRIN TO [facility] AND GIVEN HER GOOD RX COUPON FROM OFFICE IT IS A [facility]. SHE WILL TAKE THIS. IN THE HOSPITAL SHE IS NOT ABLE TO GET EDECRIN. I TOLD DAUGHTER AND HER THAT IT WILL BE BETTER TO TRY THIS AT HOME , COME TO OFFICE ON FRIDAY THEY HAVE QUESTIONS ABOUT MANY OTHER LEFT OVER MEDS AT HOME AND ALSO I WOULD LIKE TO SEE HER POST HOSPITAL. SHE IS FRAIL, STILL DYSPNEIC AND WILL BE FOR A WHILE. I TOLD HER TO BE PATIENT AND WATCH DIET. SHE WAS NEVER A SMOKER. SHE WILL HAVE TO LOSE WEIGHT AND AVOID SALT. Vital Signs/Physical Exam: Temp Pulse Resp BP Pulse Ox 97.9 F 106 H 20 129/65 96 03/02/21 12:00 03/02/21 12:00 03/02/21 12:00 03/02/21 12:00 03/02/21 12:00 General: Alert, In no apparent distress, Mild distress, Obese HEENT: Atraumatic, PERRLA, EOMI Neck: Supple, JVD not distended Respiratory: Clear to auscultation bilaterally, Normal air movement Cardiovascular: Regular rate/rhythm, Normal S1 S2 Gastrointestinal: Normal bowel sounds, No tenderness Musculoskeletal: No tenderness Integumentary: No rashes Neurological: Normal speech, Normal tone, Normal affect Lymphatics: No axilla or inguinal lymphadenopathy Laboratory Data at Discharge: WBC 7.00 K/uL (4.3-10.9) D 03/02/21 10:05 Hgb 13.4 g/dL (12.0-15.0) 03/02/21 10:05 Hct 41.8 % (36.0-45.0) 03/02/21 10:05 Plt Count 194 K/uL (152-406) 03/02/21 10:05 PT 12.4 SECONDS (9.5-12.5) 02/28/21 17:25 INR 1.08 02/28/21 17:25 Sodium 136 mmol/L (136-145) 03/02/21 10:05 Potassium 4.3 mmol/L (3.5-5.1) 03/02/21 10:05 BUN 25 mg/dL (7-18) H 03/02/21 10:05 Creatinine 1.06 mg/dL (0.55-1.3) 03/02/21 10:05 Glucose 295 mg/dL (74-106) H 03/02/21 10:05 Magnesium 2.0 mg/dL (1.8-2.4) 03/02/21 10:05 Total Bilirubin 0.7 mg/dL (0.2-1.0) 02/28/21 17:25 AST 22 U/L (15-37) 02/28/21 17:25 ALT 42 U/L (12-78) 02/28/21 17:25 Alkaline Phosphatase 76 U/L (45-117) 02/28/21 17:25 Home Medications: Insulin 70/30 NPH/Reg Human [Novolin 70/30*] 40 unit SQ BIDAC ml 03/02/21 Metoprolol Succinate [Toprol Xl*] 50 mg PO [id number] tab 03/02/21 Spironolactone [Aldactone*] 100 mg PO DAILY tab 03/02/21 Followup: Joselito Ponce MD [Primary Care Provider] - 1-2 Weeks (CALL TO SCHEDULE AN APPOINTMENT)
[2021-03-02] MEDS ORDERED: ACETAZOLAMIDE 500 MG IV IV SCH (21:00)
[2021-03-03] MEDS ORDERED: METOPROLOL XL 50 MG TAB PO SCH (06:00)
== END 2021-03-02 15:21 | disposition home or self-care (01) | DRG 291 ==
LOC: ER 15:52 → ERHOLD 19:57 → 2ND 22:28 → OBSVTOIN 03-01 17:25
PROVIDERS: ADMIT Internal Medicine; ATTEND Internal Medicine
DX: I11.0 Hypertensive heart disease with heart failure (principal); I50.33 Acute on chronic diastolic (congestive) heart failure; E11.9 Type 2 diabetes mellitus without complications; E78.5 Hyperlipidemia, unspecified; I25.10 Atherosclerotic heart disease of native coronary artery without angina pectoris; R77.8 Other specified abnormalities of plasma proteins; Z88.1 Allergy status to other antibiotic agents; Z79.4 Long term (current) use of insulin; Z95.1 Presence of aortocoronary bypass graft; Z20.822 Contact with and (suspected) exposure to COVID-19
CPT/HCPCS: 36415; 71046; 71275; 76700; 80048; 80053; 80076; 82550; 82947; 83036; 83735; 83880; 84484; 85025; 85379; 85610; 85652; 93005; 93306; 93970; 94640; 99285; G0378; J1650; J1815; Q9967; U0003

== ENCOUNTER 2021-04-09 06:35 | Day surgery (SDC) | payer OTHER, MEDICARE ==
[2021-04-06 11:40] LABS: Absolute Lymphocytes (CBC) 1.7 K/uL (0.7-4.9); Hematocrit 51.2 % (36.0-45.0); Lymphocytes % 17.6 % (15.3-44.8); MPV 8.5 fL (7.6-11.3); RBC Red Blood Cell Count 5.66 M/uL (3.86-4.86)
[2021-04-06 11:43] LABS: Protime INR 0.97
[2021-04-06 11:54] LABS: Potassium 4.4 mmol/L (3.5-5.1)
[2021-04-09] MEDS ORDERED: FENTANYL CITR 100 MCG/2 ML ONE (06:48)
[2021-04-09] MEDS ORDERED: ATROPINE SULF 1 MG/10 ML SYR IV ONE (06:49)
[2021-04-09] MEDS ORDERED: MIDAZOLAM HCL 2 MG/2 ML INJ ONE ×2 (06:49→07:36)
[2021-04-09] MEDS ORDERED: NA CHLORIDE 0.9% 500 ML ONE (06:50)
[2021-04-09] MEDS ORDERED: NA CHLORIDE 0.9% 0 ML ONE (06:50)
[2021-04-09] MEDS ORDERED: NITROGLYCERIN 100 MCG/ML SYR (for cath lab use only) IV ONE (06:51)
[2021-04-09] MEDS ORDERED: HEPA 1000U/500MLS 1,000 UNIT/500 ML BAG IV ONE ×2 (06:51→06:52)
[2021-04-09] MEDS ORDERED: LIDOCAINE 1% 20 ML MDV ONE (06:51)
[2021-04-09] MEDS ORDERED: NITROGLYCERIN/D5W 25 MG/250 ML BTL IV ONE (06:52)
[2021-04-09 07:13] VITALS: TEMP 97.6
[2021-04-09 09:54] VITALS: BP 115/88; O2SAT 97
--- NOTE | 2021-04-09 12:47 | OP ---
Surgeon: Yo Nguyen MD Internal Security Manager: Dorinda Martin. I would like to note the patient in the manager lab does have an intermittent atrial fibrillation with s inus tachycardia and I will go and put her on metoprolol ER 50 b.i.d. for now and we will deal with t hat after her stent intervention. Reason For Admission: Left heart catheterization, selective coronary arteriogram, left internal mamm dorothy injection, and vein graft injection. Indication: Unstable angina and history of coronary artery disease. Ms. Thomason is 80. Known history o f hypertension, dyslipidemia, status post CABG I believe in 2003, unstable angina symptoms. Procedure In Detail: Brought to the manager lab today as an outpatient, prepped and draped in the routi ne sterile fashion. Given Versed and fentanyl for sedation. A 6-Croat[place] sheath introduced in [facility] common femoral artery successfully using the Seldinger technique. Angiography there was normal. StarClose was used to close the case. A JL3.5 catheter was used to cannulate the left main. The lef t main showed a distal 99% occlusion, complete occlusion of the LAD, normal circumflex system. A JR4 catheter cannulated the [place] RCA, which was 100% occluded and cannulated the ENNIS which was patent to the LAD, and RCA graft was open as well with about a 30% stenosis. There were no complications. Blood loss was 5 mL. The patient tolerated the procedure well. Anesthesia: Total conscious sedation 45 minutes. Postoperative Diagnosis: Severe coronary artery disease. Plan: For left main stent in [place]. We will have Dr. De Santiago review the film before we schedule he r. WM/BRADY Voice ID: [id number] Report ID: [id number]
== END 2021-04-09 09:45 | disposition home or self-care (01) ==
LOC: CCL 06:35
DX: I25.110 Atherosclerotic heart disease of native coronary artery with unstable angina pectoris (principal); I25.700 Atherosclerosis of coronary artery bypass graft(s), unspecified, with unstable angina pectoris; I25.82 Chronic total occlusion of coronary artery; I10 Essential (primary) hypertension; E78.5 Hyperlipidemia, unspecified; Z88.2 Allergy status to sulfonamides; Z20.822 Contact with and (suspected) exposure to COVID-19
CPT/HCPCS: 93005; 85025; 80048; 36415; 85610; 82947 ×2; 85730; 93455; U0003; C1893; J2250; J3010; J7040; J1644 ×2; J0583

== ENCOUNTER 2024-05-14 09:03 | Emergency (ER) | payer OTHER, MEDICARE ==
--- NOTE | 2024-05-14 11:08 | RAD REPORT ---
EXAMINATION: XR Lumbar Spine 3 Views CLINICAL INDICATION: Female, 83 years old. [facility] MAIN PAIN Bed Name: IW1 TECHNIQUE: AP, lateral, focused lateral lumbosacral views of the lumbar spine were obtained. COMPARISON: No prior exam. FINDINGS: For purposes of this dictation, it is assumed that there are 5 lumbar type vertebral bodies. ALIGNMENT: There is normal alignment of the lumbar spine. BONES: Vertebral bodies are normal in height. No aggressive osseous lesions. Moderate degenerative ch anges at multiple levels. DISCS: Disc heights are maintained. IMPRESSION: No acute lumbar spine abnormality. Moderate degenerative changes at multiple levels.
--- NOTE | 2024-05-14 11:09 | RAD REPORT ---
EXAMINATION: XR PELVIS CLINICAL INDICATION: Female, 83 years old. [facility] MAIN PAIN Bed Name: IW1 TECHNIQUE: AP Pelvis radiograph was obtained. COMPARISON: No prior exam. FINDINGS: No evidence of fracture or dislocation. Normal alignment. Moderate degenerative changes at both hips. Soft tissues are unremarkable. IMPRESSION: No acute osseous abnormalities. Moderate degenerative changes at both hips.
[2024-05-14 11:41] LABS: Absolute Basophils 0.1 K/uL (0-0.5); Absolute Eosinophils 0.1 K/uL (0-0.5); Absolute Lymphocytes (CBC) 1.3 K/uL (0.7-4.9); Absolute Monocytes 1.2 K/uL (0.1-1.3); Absolute Neutrophil 14.1 K/uL (1.8-8.0); Basophils % 0.4 % (0-1.3); Eosinophils % 0.6 % (0-4.4); Hematocrit 48.2 % (36.0-45.0); Hemoglobin 16.5 g/dL (12.0-15.0); Lymphocytes % 7.6 % (15.3-44.8); MCH 31.9 pg (27.0-35.0); MCHC 34.3 g/dL (32.0-36.0); MCV 92.9 fL (80-100); MPV 8.3 fL (7.6-11.3); Monocytes % 7.1 % (3.3-12.3); Neutrophils % 84.3 % (41.7-73.7); Platelets 188 thou/uL (152-406); RBC Red Blood Cell Count 5.19 M/uL (3.86-4.86); Red Cell Distribution Width 13.7 % (12.1-15.2)
--- NOTE | 2024-05-14 12:05 | RAD REPORT ---
EXAMINATION: US Lower Extremity Arterial Bilat CLINICAL INDICATION: Female, 83 years old. [facility] MAIN PAIN Bed Name: IW1 TECHNIQUE: Arterial duplex ultrasound of the bilateral lower extremities, with real-time, duplex, and spectral flow Doppler evaluation. COMPARISON: No prior exam. FINDINGS: Grayscale: Grayscale: Mild atherosclerotic plaque throughout. Right lower extremity: The lower extremity arteries are patent, with biphasic waveforms along the SENIOR ACCOUNTS PAYABLE SPECIALIST and proximal SFA. Laporte phasic waveforms along the mid SFA through dorsalis pedis arteries. Left lower extremity: The left lower extremity arteries are patent, with biphasic waveforms along the SENIOR ACCOUNTS PAYABLE SPECIALIST and proximal to m id SFA. Monophasic waveforms along the popliteal artery through dorsalis pedis artery. IMPRESSION: Up to moderate bilateral peripheral vascular disease.
--- NOTE | 2024-05-14 12:05 | RAD REPORT ---
EXAMINATION: US Extrem Venous W Compress Rhett CLINICAL INDICATION: [facility] MAIN PAIN Bed Name: IW1 Y TECHNIQUE: Complete bilateral duplex sonography of the BILATERAL lower extremity veins was performed. The examination included compression for vein patency, color Doppler imaging and flow augmentation in response to distal compression of the distal external iliac, common femoral, femoral, popliteal, t ibial, and great and small saphenous veins. COMPARISON: No prior exam. FINDINGS: Duplex sonography testing of the veins of the BILATERAL lower extremity was performed. Color flow genevieve ging shows all veins to be compressible with [id number] color filling. Pulsatile and phasic flow is present within all lower extremity deep and superficial veins examined. IMPRESSION: There is no deep vein or superficial vein thrombosis.
[2024-05-14 13:04] LABS: PT Prothrombin Time 13.3 SECONDS (10-13.0); PTT, Activated Partial Thromb 27.8 SECONDS (27.2-37.4); Protime INR 1.18
[2024-05-14 13:11] LABS: Anion Gap 10.3 mEq/L (5.0-15.0); Potassium 5.3 mEq/L (3.5-5.1)
--- NOTE | 2024-05-14 13:18 | EDPHYS ---
Physician Documentation [facility] Name: Toya Thomason Age: 83 yrs Sex: Female : 1940 Arrival Date: 05/14/2024 Time: 09:03 Bed 14 Private MD: ED Physician Richard Everett HPI: 05/14 09:32 This 83 yrs old Female presents to ER via Wheelchair with complaints of Leg Pain, Hip rn Pain, Foot Pain. 09:32 The patient presents with pain, that is acute. The complaints affect the dorsum of left rn foot, right leg. Onset: The symptoms/episode began/occurred yesterday. Severity of symptoms: At their worst the symptoms were moderate, in the emergency department the symptoms have improved. The patient has experienced a previous episode. Patient reports pain in right leg, starts in right hip/buttocks and radiates down to the foot. Also reports left foot pain. No redness or warmth. No fever or chills. Reports this happened a few years ago and was told she had an infection of the skin/foot. Has not noticed any skin changes or drainage. No wounds.. Historical: - Allergies: 09:30 Sulfa (Sulfonamide Antibiotics); jl7 - PMHx: 09:30 Diabetes - IDDM; Hyperlipidemia; Hypertension; jl7 - Immunization history:: Adult Immunizations unknown. - Infectious Disease History:: Denies. - Social history:: Smoking status: Patient denies any tobacco usage or history of. - Family history:: not pertinent. - Hospitalizations: : No recent hospitalization is reported. ROS: 09:32 Constitutional: Negative for fever, chills, and weight loss, Cardiovascular: Negative rn for chest pain, palpitations, and edema, Respiratory: Negative for shortness of breath, cough, wheezing, and pleuritic chest pain, Abdomen/GI: Negative for abdominal pain, nausea, vomiting, diarrhea, and constipation, Back: Negative for injury and pain, MS/Extremity: Positive for right leg pain and left foot pain Skin: Negative for injury, rash, and discoloration, Neuro: Negative for headache, weakness, numbness, tingling, and seizure, Exam: 09:32 Constitutional: This is a well developed, well nourished patient who is awake, alert, rn and in no acute distress. Head/Face: Normocephalic, atraumatic. Cardiovascular: Regular rate and rhythm. No pulse deficits. Respiratory: No increased work of breathing, no retractions or nasal flaring. Abdomen/GI: Soft, non-tender Back: No midline tenderness Skin: Dusky feet bilaterally, no open wounds, no redness or warmth or signs of infection or cellulitis of the lower extremities. MS/ Extremity: Full, normal range of motion. Equal circumference. Difficult to appreciate dorsalis pedis pulses bilaterally, right foot worse than left. Neuro: Awake and alert, GCS 15 Vital Signs: 09:29 BP 133 / 72; Pulse 76; Resp 17; Temp 98.8; Pulse Ox 95% ; jl7 11:30 BP 124 / 48; Pulse 70; Resp 16; Pulse Ox 98% on R/A; cm10 12:30 BP 110 / 47; Pulse 63; Resp 15; Pulse Ox 92% ; cm10 13:32 BP 128 / 64; Pulse 65; Resp 15; Pulse Ox 92% ; cm10 MDM: 09:06 Medical Screening Exam initiated rn 13:16 Differential diagnosis: Peripheral vascular disease, arterial insufficiency, DVT, early rn cellulitis. Data reviewed: vital signs, nurses notes, lab test result(s), radiologic studies, plain films, ultrasound, and as a result, I will discharge patient. Counseling: I had a detailed discussion with the patient and/or guardian regarding the historical points, exam findings, and any diagnostic results supporting the discharge/admit diagnosis, lab results, radiology results, the need for outpatient follow up, to return to the emergency department if symptoms worsen or persist or if there are any questions or concerns that arise at home. Response to treatment: the patient's symptoms have mildly improved after treatment, and as a result, I will discharge patient. Special discussion: I discussed with the patient/guardian in detail that at this point there is no indication for admission to the hospital. It is understood, however, that if the symptoms persist or worsen the patient needs to return immediately for re-evaluation. Based on the history and exam findings, there is no indication for further emergent testing or inpatient evaluation. I discussed with the patient/guardian the need to see the primary care provider for further evaluation of the symptoms. ED course: Ultrasound shows moderate peripheral vascular disease but no occlusion or DVT. Elevated WBC. Mild elevation of potassium but patient takes spironolactone. No other acute findings. No indication for admission at this time. Recommend vascular surgery follow-up as I think the majority of her pain is peripheral vascular disease and arterial insufficiency. I have personally reviewed all of the results, including but not limited to blood tests and imaging deemed necessary to safely discharge this patient at this time. All results given to and printed out for patient. I personally went over all the results with the patient and answered all questions. Patient will follow-up with PCP and or specialist as discussed. Return precautions given and understood.. 05/14 09:31 Order name: CBC with Diff; Complete Time: 12:13 rn 05/14 09:31 Order name: Basic Metabolic Panel; Complete Time: 13:16 rn 05/14 09:31 Order name: BNP; Complete Time: 13:16 rn 05/14 09:31 Order name: Protime (+inr); Complete Time: 13:16 rn 05/14 09:31 Order name: Ptt, Activated; Complete Time: 13:16 05/14 09:31 Order name: Extrem Venous W Compression Rhett US; Complete Time: 12:13 rn 05/14 09:31 Order name: Lower Extremity Arterial Bilat US; Complete Time: 12:13 05/14 09:32 Order name: XRAY Lumbar Spine (3 Views); Complete Time: 11:14 rn 05/14 09:32 Order name: XRAY Pelvis; Complete Time: 11:14 rn 05/14 09:31 Order name: IV Start; Complete Time: 11:34 05/14 12:02 Order name: Misc. Order: RECOLLECT - GREEN AND BLUE - HEMO; Complete Time: 12:44 ty Administered Medications: 13:15 Drug: Clindamycin PO 300 mg PO once Route: PO; cm10 13:54 Follow up: Response: No adverse reaction cm10 Disposition Summary: 05/14/24 13:18 Discharge Ordered Notes: Location: Home rn Problem: an ongoing problem rn Symptoms: are unchanged rn Condition: Stable rn Diagnosis - Peripheral vascular disease, unspecified rn Followup: rn - With: Private Physician - When: As needed - Reason: Recheck today's complaints, Re-evaluation by your physician Discharge Instructions: - Discharge Summary Sheet rn - Neuropathic Pain rn - Peripheral Vascular Disease rn Forms: - Medication Reconciliation Form rn - Antibiotic furniture designer - Prescription Opioid Use rn - Patient Portal Instructions rn - Leadership Thank You Letter rn Prescriptions: - gabapentin 100 mg Oral capsule - take 1 capsule ORAL route 2 times per day As needed; 14 capsule; Refills: 0, rn Product Selection Permitted - Clindamycin HCl 300 mg Oral Capsule - take 1 capsule ORAL route every 6 hours for 10 days; 40 capsule; Refills: 0, rn Product Selection Permitted Signatures: Dispatcher [employer] EDMS Richard Everett MD MD rn Leal, Jahala RN RN jl7 Hali Toth RN RN cm10 Efrain Schmitz ty Corrections: (The following items were deleted from the chart) 09: 09:31 Lower Extremity Arterial Bilat+US.RAD.BRZ ordered. EDMS EDMS : 09:31 CBC+H.LAB.BRZ ordered. EDMS EDMS : 09:31 BASIC METABOLIC PANEL+C.LAB.BRZ ordered. EDMS EDMS : 09:31 PROBNP+C.LAB.BRZ ordered. EDMS EDMS : 09:31 PROTIME (+INR)+COAG.LAB.BRZ ordered. EDMS EDMS : 09:31 PTT, ACTIVATED+COAG.LAB.BRZ ordered. EDMS EDMS
--- NOTE | 2024-05-14 13:18 | ER ---
Nurse's Notes [facility] Name: Toya Thomason Age: 83 yrs Sex: Female : 1940 Arrival Date: 05/14/2024 Time: : Bed 14 Private MD: Diagnosis: Peripheral vascular disease, unspecified Presentation: 05/14 09:29 Chief complaint: Patient states: Right hip pain, radiates down right leg, denies trauma jl7 x 1 day. Coronavirus screen: At this time, the client does not indicate any symptoms associated with coronavirus-19. Ebola Screen: No symptoms or risks identified at this time. Initial Sepsis Screen: Does the patient meet any 2 criteria? No. Patient's initial sepsis screen is negative. Does the patient have a suspected source of infection? No. Patient's initial sepsis screen is negative. Risk Assessment: Do you want to hurt yourself or someone else? Patient reports no desire to harm self or others. Onset of symptoms was May 13, 2024. 09:29 Method Of Arrival: Wheelchair jl7 09:29 Acuity: LUIS 3 jl7 Triage Assessment: :30 General: Appears in no apparent distress. uncomfortable, Behavior is calm, cooperative, jl7 appropriate for age. Pain: Complains of pain in right leg Pain currently is 10 out of 10 on a pain scale. Historical: - Allergies: :30 Sulfa (Sulfonamide Antibiotics); jl7 - PMHx: :30 Diabetes - IDDM; Hyperlipidemia; Hypertension; jl7 - Immunization history:: Adult Immunizations unknown. - Infectious Disease History:: Denies. - Social history:: Smoking status: Patient denies any tobacco usage or history of. - Family history:: not pertinent. - Hospitalizations: : No recent hospitalization is reported. Screenin:30 [facility] ED Fall Risk Assessment (Adult) History of falling in the last 3 months, cm10 including since admission No falls in past 3 months (0 pts) Confusion or Disorientation No (0 pts) Intoxicated or Sedated No (0 pts) Impaired Gait No (0 pts) Mobility Assist Device Used No (0 pt) Altered Elimination No (0 pt) Score/Fall Risk Level 0 - 2 = Low Risk Oriented to surroundings, Maintained a safe environment, Hourly rounding (assess needs \T\ fall precautionary measures) done. Abuse screen: Denies threats or abuse. Denies injuries from another. Nutritional screening: No deficits noted. Tuberculosis screening: No symptoms or risk factors identified. Assessment: 11:30 General: Appears in no apparent distress. uncomfortable, Behavior is calm, cooperative. cm10 Neuro: No deficits noted. Level of Consciousness is awake, alert, obeys commands, Oriented to person, place, time, situation, Appropriate for age. Respiratory: No deficits noted. Airway is patent Respiratory effort is even, unlabored, Respiratory pattern is regular, symmetrical. Derm: No deficits noted. Skin is intact. Musculoskeletal: Reports pain in right leg. Vital Signs: 09:29 BP 133 / 72; Pulse 76; Resp 17; Temp 98.8; Pulse Ox 95% ; jl7 11:30 BP 124 / 48; Pulse 70; Resp 16; Pulse Ox 98% on R/A; cm10 12:30 BP 110 / 47; Pulse 63; Resp 15; Pulse Ox 92% ; cm10 13:32 BP 128 / 64; Pulse 65; Resp 15; Pulse Ox 92% ; cm10 ED Course: 09:04 Patient arrived in ED. im 09:06 Richard Everett MD is Attending Physician. rn 09:30 Triage completed. jl7 09:30 Arm band placed on right wrist. Patient placed in waiting room, Patient notified of jl7 wait time. 10:02 Hali Toth, RN is Primary Nurse. cm10 10:07 X-ray completed. Patient tolerated procedure well. mh1 10:08 XRAY Lumbar Spine (3 Views) In Process Unspecified. EDMS 10:08 XRAY Pelvis In Process Unspecified. EDMS 11:04 Lower Extremity Arterial Bilat US In Process Unspecified. EDMS 11:15 Extrem Venous W Compression Rhett US In Process Unspecified. EDMS 11:30 Back from radiology. cm10 11:30 Patient has correct armband on for positive identification. Bed in low position. Call cm10 light in reach. Side rails up X2. Pulse ox on. NIBP on. 11:34 Protime (+inr) Sent. cm10 11:34 Ptt, Activated Sent. cm10 11:34 BNP Sent. cm10 11:34 Basic Metabolic Panel Sent. cm10 11:34 CBC with Diff Sent. cm10 11:36 Initial lab(s) drawn, by me, sent to lab. Inserted saline lock: 20 gauge in right cm10 forearm, using aseptic technique. Blood collected. Flushed with 10 mL NS. 13:34 Provided Education on: Follow-up instructions. cm10 13:34 No provider procedures requiring assistance completed. IV discontinued, intact, cm10 bleeding controlled, No redness/swelling at site. Pressure dressing applied. Administered Medications: 13:15 Drug: Clindamycin PO 300 mg PO once Route: PO; cm10 13:54 Follow up: Response: No adverse reaction cm10 Medication: 11:30 VIS not applicable for this client. cm10 Outcome: 13:18 Discharge ordered by . rn 13:54 Discharged to home via wheelchair, with significant other, cm10 13:54 Condition: good 13:54 Discharge instructions given to patient, Instructed on discharge instructions, follow up and referral plans. medication usage, Demonstrated understanding of instructions, follow-up care, medications, Prescriptions given X 2, 13:54 Patient left the ED. cm10 Signatures: Dispatcher [employer] EDMS Heaven Romero 1 Richard Everett MD MD rn Leal, Jahala, RN RN jl7 Niesha Leiva Clarissa, RN RN cm10
[2024-05-14 14:09] VITALS: TEMP 98.8
[2024-05-14 14:13] VITALS: O2SAT 92
[2024-05-14 14:14] VITALS: BP 128/64
== END 2024-05-14 13:54 | disposition home or self-care (01) ==
LOC: ER 09:03
DX: I73.9 Peripheral vascular disease, unspecified (principal)
CPT/HCPCS: 36415; 72100; 72170; 80048; 83880; 85025; 85610; 85730; 93925; 93970; 99284